=== PATIENT | male | born 1995 | race Caucasian/White ===

== ENCOUNTER 2025-01-20 04:36 | Emergency (ER) | payer OTHER, SELFPAY ==
--- OUTSIDE RECORDS SUMMARY | 2023-10-23 16:30 | XMS_ITS ---
Author Organization [employer] [place] ([address]) Address [address] [place] [address] Care Team Providers Care Vending Machine Host/Hostess Name Role Phone [facility]-M[facility], Provider Unavailable Unavailab le REASON FOR VISIT Multum To Medispan Conversion Encounter Medications Medication SIG (Take, Route, Frequency, Duration) Notes Start Date End Date Status AZITHROMYCIN (Z-PACK) 250 MG 500 MG PO QD X 1 DAY, 250 MG PO QD X 4 DAYS PO DIRECTED; Duration: 5 DAYS *Please review for potential replacement for e-prescription and drug interaction check* 03/22/2023 Active Encounters Encounter Location Date Provider Diagnosis [address] [address] 10/23/2023 Provider ZZ-Migration Plan Of Treatment Medication Medication Name Sig Start Date Stop Date Notes AZITHROMYCIN (Z-PACK) 250 MG 500 MG PO QD X 1 DAY, 250 MG PO QD X 4 DAYS PO DIRECTED; Duration: 5 DAYS 03/22/2023 *Please review for potential replacement for e-prescription and drug interaction check* Progress Notes * Hardy MEADE CDOB:1994 (29 yo M)Acc No.[id number]:10/23/2023 Patient: Mini JUNIOR Hardy Lucas Provider: Lexi Kurtz :1995 A ge:28 Y S ex:Male Date:10/23/2023 Address:[address], [id number] Subjective: * Chief Complaints: * 1 . Multum To Medispan Conversion Encounter. * Medical History: Objective: * Vitals: Assessment: Plan: * Treatment: * Billing Information: * Visit Code: * Procedure Codes: * Electronic signature of Prov ider ZZ-Migration on 01/20/2025 at 04:39 AM CDT Sign off status: Pending * Provider: Lexi zuñiga Migration Date: 0 10/23/2023 Generated for Jumana steinberg/Jose/Grace on: 0 01/20/2025 04:39 AM CDT
--- NOTE | ~2025-01-20 | XR_ITS ---
EXAMINATION: XR chest 1V portable COMPARISON: No comparisons available. HISTORY: uri FINDINGS: The lungs are clear, no effusion. No pneumothorax. Heart is normal size. Mediastinal and hilar contours are within normal limits. Bony thorax no acute abnormality. Miscellaneous: None Impression: No acute cardiopulmonary abnormality. Reviewed, dictated and finalized at location A. Impression: No acute cardiopulmonary abnormality.
--- OUTSIDE RECORDS SUMMARY | 2025-01-20 04:39 | XMS_ITS | Patient Health Record ---
Author Organization [facility] Address [address] [facility] [address] [place] [address] Care Team Providers Care Industrial Property Appraiser Name Role Phone Miguel Borges Unavailable [phone] Reason For Referral No Information Plan Of Treatment No Information Insurance Providers Payer Name Payer Address Payer Phone Subscriber Number Group Number Insured Name Patient Relationship to Insured Coverage Start Date Coverage End Date [facility] [address] [place] [address] [id number] ROSY MEADE Spouse - patient is the spouse of the insured
--- OUTSIDE RECORDS SUMMARY | 2025-01-20 04:39 | XMS_ITS | Patient Health Record ---
Author Organization [facility] Address [address] [place], [place] [id number] Care Team Providers Care Conference Specialist Name Role Phone JESSICA MALDONADO Unavailable [phone] Jd Mitchell Unavailable Unavailable Allergies No Known Allergies Reason For Referral No Information Medications Medication SIG (Take, Route, Fr equency, Duration) Notes Start Date End Date Status Verapamil HCl ER 120 MG TAKE 1 TABLET BY MOUTH IN THE EVENING Oral; Duration: 30 Days Active Irbesartan 150 MG Oral; Duration: 30 Days Active DULoxetine HCl 20 MG TAKE 1 CAPSULE BY M OUTH TWICE DAILY Oral; Duration: 30 Days Active Plan Of Treatment No Information Insurance Providers Payer Name Payer Address Payer Phone Subscriber Number Group Number Insured Name Patient Relationship to Insured Coverage Start Date Coverage End Date [facility] [place] [facility] [address] [address] [place] [id number] KYRA MEADE Self - patient is the insured
--- OUTSIDE RECORDS SUMMARY | 2025-01-20 04:39 | XMS_ITS | Clinical Summary ---
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 Gender Identity Not on file Sexual Orientation Not on file Plan of Treatment Health Maintenance Due Date Last Done Comments Annual Physical 1996 Hepatitis C 2011 DTaP, Tdap and Td Vaccines (2 - Tdap) 2012 12/03/1998, 07/16/1994, 04/15/1994, Additional history exists Hepatitis B Vaccines (1 of 3 - 19+ 3-dose series) 2012 HPV Vaccines (3 - Male 3-dose series) 04/21/2017 01/27/2017, 08/27/2016, 2004 COVID-19 Vaccine (3 - season) 2025 08/08/2020, 07/18/2020 Meningococcal Vaccine Completed 11/28/2010 Meningococcal B Vaccine Aged Out No l onger eligible based on patient's age to complete this topic Pneumococcal Vaccine: Pediatrics (0 to 5 Years) and At-Risk Patients (6 to 49 Years) Aged Out No longer eligible based on patient's age to complete this topic RSV Immunizations Under 20 Months Aged Out No longer eligible based on patient's age to complete this topic
[2025-01-20 04:43] VITALS: BP 146/102; PULSE 104; RESP 18; O2SAT 97
[2025-01-20 05:12] LABS: Strep Group A RT-PCR DETECTED (Negative)
[2025-01-20 05:27] LABS: Influenza A QL RT-PCR Negative (Negative); Influenza B QL RT-PCR Negative (Negative); RSV RNA, RT-PCR Negative (Negative); SARS-CoV-2 RNA PCR Negative (Negative)
[2025-01-20] MEDS: SODIUM CHLORIDE 0.9% IV 1,000 ML 999 ML IV CONT (05:42)
[2025-01-20] MEDS: ONDANSETRON INJ 4 MG/2 ML VIAL IV PUSH (05:43)
[2025-01-20 05:50] LABS: Hematocrit 45.0 % (42.0-52.0); Hemoglobin 15.3 g/dL (14.0-18.0); Immature Granulocyte Percent A 0.7 % (0-0.5); Lymphocytes Absolute Auto 0.77 K/mm3 (0.9-3.2); Mean Corpuscular HGB Conc 34.0 g/dl (32-36); Mean Corpuscular Hemoglobin 29.1 pg (26-34); Mean Corpuscular Volume 85.7 fl (80-100); Nucleated Red Blood Cells Absolute Auto 0.000 K/mm3 (0.0-0.012); Nucleated Red Blood Cells Perc 0.0 % (0.0-0.2); Platelet Count Result 287 k/mm3 (150-375); Red Blood Count 5.25 M/mm3 (4.6-6.20); White Blood Count 11.8 K/mm3 (4.5-10.0)
[2025-01-20 05:55] LABS: Add Urine Microscopic? YES; Appearance Urine Cloudy (Clear); Glucose Urine UA Negative (Negative); Leukocyte Esterase Ur Trace LEU/UL (Negative); Nitrate Urine Negative (Negative); Non Pathogenic Casts 0-2; Specific Grav Ur 1.025 (1.001-1.035)
[2025-01-20 06:01] LABS: Alanine Aminotransferase 45 U/L (6-50); Albumin Level 4.4 g/dL (3.5-5.1); Alkaline Phosphatase 73 U/L (38-126); Anion Gap 12 mmol/L (4-12); Aspartate Amino Transferase 74 U/L (17-59); Bilirubin,Total 0.9 mg/dL (0.2-1.3); Blood Urea Nitrogen 15 mg/dL (9-20); Calcium 9.4 mg/dL (8.4-10.2); Carbon Dioxide 24 mmol/L (22-30); Chloride 101 mmol/L (98-107); Estimated CRCL calculation 111 ml/min; Estimated Glomerular Filt Rate > 60; Glucose 116 mg/dL (65-110); Lipase 41 U/L (23-300); Magnesium 2.1 mg/dL (1.6-2.3); Potassium 3.8 mmol/L (3.4-5.0); Sodium 137 mmol/L (137-145); Total Protein 8.7 g/dL (6.3-8.2)
--- NOTE | 2025-01-20 06:18 | ED.GENADULT ---
HPI - General Adult General Chief complaint: Upper Respiratory Infection Stated complaint: I think i have the Flu Time Seen by Provider: 01/20/25 04:49 History of Present Illness HPI narrative: Patient is a 29-year-old male who presents emergency department this morning with flu-like symptoms. Patient states that symptoms started on Wednesday and initially did not think much of it because he started a new medication for weight loss and he thought it was due to that. Symptoms included fevers, chills, sore throat, nausea, vomiting, diarrhea and postnasal drip. Patient took home COVID test which was negative. Denies any sick contacts at home. No additional symptoms or concerns at this time. Related Data Allergies Allergy/AdvReac Type Severity Reaction Status Date / Time No Known Allergies Allergy Verified 01/20/25 05:43 Review of Systems Review of Systems: All systems are reviewed and are negative unless stated otherwise in the HPI. Exam Narrative: General: Alert, awake, afebrile, in no acute distress. HEENT: PERRL, no rhinorrhea, no post nasal drip, oropharynx erythema no evidence of exudates. Neck: Trachea midline, no JVD, no lymphadenopathy. Cardiovascular: Regular rate and rhythm, no murmurs, rubs or gallops, no peripheral edema. Respiratory: Clear to auscultation bilaterally, no tachypnea, no wheezing, no rhonchi, no rubs, no respiratory distress. Abdomen: Soft, nontender, nondistended, no rebound, no guarding, no peritoneal signs. Musculoskeletal: No joint swelling or deformity, normal muscle tone. Skin: No rashes or petechia, no signs of infection. Psychiatric: Alert and oriented, normal behavior and judgment for situation. Neurological: Alert and oriented to person, place, and time. Follows all commands. No focal deficits, speech is clear and fluent. Course Vital Signs Vital signs: Vital Signs Pulse Rate 104 H 01/20/25 04:43 Respiratory Rate 18 01/20/25 04:43 Blood Pressure 146/102 H 01/20/25 04:43 Pulse Oximetry 97 01/20/25 04:43 Pulse Rate 104 H 01/20/25 04:43 Respiratory Rate 18 01/20/25 04:43 Blood Pressure 146/102 H 01/20/25 04:43 Pulse Oximetry 97 01/20/25 04:43 Medical Decision Making MDM Narrative Medical decision making narrative: The patient was evaluated by myself in the emergency department. History is obtained from patient who is an independent historian and physical exam was performed. External medical records were reviewed at this time. IV was established and pertinent tests were ordered. Patient was administered 1 L IV fluid bolus with normal saline, 4 mg of IV Zofran and 20 mg of IV Pepcid. Laboratory results obtained revealing no acute process. Urinalysis unremarkable, viral swabs negative for COVID/influenza/RSV, strep swabs were positive for group a strep. Imaging studies obtained included CXR which was independently interpreted by me revealing no acute process, which is pending final radiology interpretation. Differential diagnosis considerations include acute viral syndrome, dehydration, acute kidney injury, electrolyte derangements, gastroenteritis, strep throat. Comorbidities impacting this visit include none. I have evaluated and discussed social determinants of health with the patient that could potentially impact subsequent diagnosis and treatment plans. On repeat assessment of the patient, reevaluation revealed that the patient is doing well and is in no acute distress. Patient symptoms have improved since he arrived to our emergency department. Repeat vital signs were all reviewed and noted to be stable. Differential diagnosis and treatment plan were discussed with the patient at bedside. Patient agrees with discussion and after shared medical decision making agrees with discharge. All questions were answered to the patient's satisfaction. Patient will follow up with his PCP in 3-5 days. Scripts for Zofran and amoxicillin was sent to patient's pharmacy to take as prescribed. Patient was provided with strict return precautions and instructed to return to the emergency department if any new or worsening symptoms develop. The patient was discharged in stable condition. Vital Signs Vital Signs: Vital Signs Pulse Rate 104 H 01/20/25 04:43 Respiratory Rate 18 01/20/25 04:43 Blood Pressure 146/102 H 01/20/25 04:43 Pulse Oximetry 97 01/20/25 04:43 Pulse Rate 104 H 01/20/25 04:43 Respiratory Rate 18 01/20/25 04:43 Blood Pressure 146/102 H 01/20/25 04:43 Pulse Oximetry 97 01/20/25 04:43 Lab Data 01/20/25 05:37 01/20/25 05:37 Labs: Lab Results 01/20/25 01/20/25 Range/Units 04:46 05:37 WBC 11.8 H (4.5-10.0) K/mm3 RBC 5.25 (4.6-6.20) M/mm3 Hgb 15.3 (14.0-18.0) g/dL Hct 45.0 (42.0-52.0) % MCV 85.7 (80-100) fl MCH 29.1 (26-34) pg MCHC 34.0 (32-36) g/dl RDW 13.2 (11.5-14.5) % Plt Count 287 (150-375) k/mm3 MPV 10.0 (7.4-10.4) fl Immature Gran % (Auto) 0.7 H (0-0.5) % Neut % (Auto) 83.6 H (45.5-73.1) % Lymph % (Auto) 6.5 L (18.3-44.2) % [place] % (Auto) 8.8 H (2.6-8.5) % Eos % (Auto) 0.1 (0-4.4) % Baso % (Auto) 0.3 (0.2-1.2) % Lymph # (Auto) 0.77 L (0.9-3.2) K/mm3 [place] # (Auto) 1.0 H (0.1-0.6) K/mm3 Eos # (Auto) 0.0 (0-0.3) K/mm3 Baso # (Auto) 0.0 (0.0-0.1) K/mm3 Abs Immat Gran (auto) 0.08 H (0.00-0.031) K/mm3 Absolute Neuts (auto) 9.9 H (1.3-6.7) K/mm3 Absolute Nucleated RBC 0.000 (0.0-0.012) K/mm3 Nucleated RBC % 0.0 (0.0-0.2) % Sodium 137 (137-145) mmol/L Potassium 3.8 (3.4-5.0) mmol/L Chloride 101 (98-107) mmol/L Carbon Dioxide 24 (22-30) mmol/L Anion Gap 12 (4-12) mmol/L BUN 15 (9-20) mg/dL Creatinine 1.21 (0.7-1.3) mg/dL Estim Creat Clear Calc 111 ml/min Estimated GFR > 60 (59 - ) Glucose 116 H (65-110) mg/dL Calcium 9.4 (8.4-10.2) mg/dL Magnesium 2.1 (1.6-2.3) mg/dL Total Bilirubin 0.9 (0.2-1.3) mg/dL AST 74 H (17-59) U/L ALT 45 (6-50) U/L Alkaline Phosphatase 73 (38-126) U/L Total Protein 8.7 H (6.3-8.2) g/dL Albumin 4.4 (3.5-5.1) g/dL Lipase 41 (23-300) U/L Urine Color Dark yellow (Yellow) Urine Appearance Cloudy H (Clear) Urine pH 6.0 (5.0-9.0) Ur Specific [place] 1.025 (1.001-1.035) Urine Protein 3+ H (Negative) mg/dL Urine Glucose (UA) Negative (Negative) mg/dL Urine Ketones 1+ H (Negative) mg/dL Ur Blood (Man) Trace (Negative) Urine Nitrate Negative (Negative) Urine Bilirubin Negative (Negative) Urine Urobilinogen 1.0 (<2.0) mg/dL Leukocyte Esterase Rfl Trace H (Negative) LUCILA/UL Urine RBC 0-2 (0-2) /hpf Urine WBC 0-5 (0-3) /hpf Ur Squamous Epith Cells Few (Few) /hpf Urine Bacteria None seen /hpf Urine Casts 0-2 Influenza A (RT-PCR) Negative (Negative) Influenza B (RT-PCR) Negative (Negative) RSV (RT-PCR) Negative (Negative) SARS-CoV-2 RNA (RT-PCR) Negative (Negative) Group A Strep (PCR) Detected A (Negative) Discharge Plan Discharge Clinical Impression: Acute streptococcal pharyngitis Patient Disposition: Home Condition: Improved Instructions: Antibiotic Form, Pharyngitis (ED) Additional Instructions: Please take the prescribed antibiotic as instructed for your strep pharyngitis. Follow-up with your family doctor within the next 3-5 days. Return to the ED if any new or worsening symptoms develop. Patient Language: Croatian Prescriptions: New ondansetron 4 mg tablet,disintegrating 4 mg PO Q8H PRN (Reason: nausea and vomiting) Qty: 10 0RF amoxicillin 500 mg capsule 500 mg PO Q12H 10 Days Qty: 20 0RF Follow-up/Referrals: Jd Mitchell MD [Primary Care Provider, Internal Medicine] - 3 Days Time of Disposition: 06:16
[2025-01-20] MEDS: FAMOTIDINE 20 MG/2 ML VIAL IV PUSH (06:21)
[2025-01-20 06:36] VITALS: O2SAT 100
== END 2025-01-20 06:38 | disposition home or self-care (01) ==
PROVIDERS: Emergency Provider Emergency Medicine; PCP Internal Medicine
DX: J02.0 Streptococcal pharyngitis (principal); Z20.822 Contact with and (suspected) exposure to COVID-19
CPT/HCPCS: 36415; 71045; 80053; 81001; 83690; 83735; 85025; 87637; 87651; 96361; 96374; 96375; 99284; J2405; J7030